=== PATIENT | female | born 1985 | race Caucasian/White ===

== ENCOUNTER 2017-10-13 12:49 | Emergency (ER) | payer OTHER ==
[~2017-10-13] VITALS: Ht 154.9 cm; Wt 86.2 kg
[~2017-10-13 12:49] MED LIST: AMOX500 PO; Augmentin 875-1 EACH PO; Cleocin HCl150 MG PO; Naprosyn500 MG PO; Ultram50 MG PO
[2017-10-13] MEDS ORDERED: IBUP800 PO (13:20)
== END 2017-10-13 13:36 | disposition home or self-care (01) ==
LOC: ER 12:49
DX: S63.635A Sprain of interphalangeal joint of left ring finger, initial encounter (principal); M20.032 Swan-neck deformity of left finger(s); Z88.5 Allergy status to narcotic agent; Z87.891 Personal history of nicotine dependence; X58.XXXA Exposure to other specified factors, initial encounter; Y93.72 Activity, wrestling
CPT/HCPCS: 29130; 73140; 99283